=== PATIENT | male | born 1950 | race Caucasian/White ===

== ENCOUNTER 2020-09-28 10:03 | Outpatient (REF) | payer MEDICARE, SELFPAY | END 2020-09-28 10:04 | disposition home or self-care (01) | LOC: HO.LAB 10:03 | PROVIDERS: PCP Internal Medicine; Visit Provider Internal Medicine | DX: Z20.828 Contact with and (suspected) exposure to other viral communicable diseases (principal) | CPT/HCPCS: C9803; U0003 ==

== ENCOUNTER 2024-08-02 13:32 | Outpatient (AMB) | payer MEDICARE, SELFPAY ==
--- NOTE | 2024-08-02 13:45 | A.OFFVIS_ITS ---
Vital Signs 08/02/24 14:00 Height 5 ft 11 in Weight 161 lb 2 oz BMI 22.5 BP 140/80 H Blood Pressure Location Lt brachial Position Sitting Respiration 16 Pulse 98 Pulse Source Pulse Oximeter Pulse Oximetry (%) 100 Oxygen Delivery Method Room Air Intake Visit Reasons: Radiation fibrosis in neck Intake Note: Patient comes in for initial visit was referred by [facility] primary care. Reports pain 05/27. Allergies glipizide Allergy (Verified 08/02/24 13:49) Muscle Pain HPI Comments Details: Cj is very pleasant 73 years old gentleman who presents in my office with complain on weakness and intermittent severe pain in the lower cervical spine with radiation into bilateral shoulders. He relates his pain to the fact that he received radiation for widespread Hodgkin's lymphoma. 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 He reported that the condition started 15-20 years ago. He also received radiation for prostate cancer. That was more recent. He reports his pain today 05/27. He reports that his pain is aggravated by motion. His pain onset was gradual. Because of his pain he can not sleep normally. He has general problems with sleeping. He used to be on Ambien but now he weaned off of Ambien and he is able to sleep for 4-5 hours a night. He can do activities of daily living he can take care of himself but he can not function normally. He reports that every time he needs to perform some minimal efforts he feels severe pain in bilateral shoulders and in the neck and he is struggling with his activities. Movements aggravate his pain. In terms of tissue damage he reports his pain as dull, sore, hurting, aching, heavy sensation. He had multiple studies performed on his cervical lumbar and thoracic spine the dictation of the cervical spine is as below. The entire report from the radiology is uploaded in the section. He had multiple sessions of physical therapy massage therapy and herbal homeopathic treatment with [facility]. He received minimal help was from massage therapy. He continues to receive it from 08/05/24. His past medical history significant for heart disease anemia kidney disease diabetes arthritis sexual dysfunction hypertension and prostate problems. He is also suffering from sleep disorder. He had multiple surgeries in the past including biopsy for Hodgkin's disease in 1980 he had several colonoscopies and endoscopies and he had total shoulder replacement he also has a history of stent placement for the heart condition. [facility] Medical History (Updated 08/02/24 @ 16:15 by Vinny Mendez MD) Pulmonary hypertension Type 2 diabetes mellitus with diabetic nephropathy, with long-term current use of insulin SONIDO (obstructive sleep apnea) Stage 3 chronic kidney disease Hypothyroidism, unspecified Depressive disorder Family History (Updated 08/02/24 @ 14:05 by Prudence Guzmán) Father DM (diabetes mellitus) Mother DM (diabetes mellitus) HTN (hypertension) Renal failure Brother DM (diabetes mellitus) Social History (Updated 08/02/24 @ 13:56 by Prudence Guzmán) Alcohol intake: never Patient Tobacco Use Status: Former Tobacco user Review of Systems Const All systems reviewed & are unremarkable except as noted in HPI and below ENT Reports Normal hearing present Neuro Reports Normal hearing present, Denies Abnormal speech present, Denies confusion and Denies Sensory deficit (Neuro) Psych Denies confusion Physical Exam Vital Signs: Last Vital Signs Pulse 98 08/02/24 14:00 Resp 16 08/02/24 14:00 BP 140/80 H 08/02/24 14:00 Pulse Ox 100 08/02/24 14:00 Oxygen Delivery Method Room Air 08/02/24 14:00 BMI result Body Mass Index 22.5 Const General: no acute distress; No confusion Orientation/consciousness: patient oriented x3 and No confusion Eyes General: appearance normal, both eyes and all related structures Pupils: Equal, round and reactive pupils present EOM: EOMs intact bilaterally Neck Other: Very limited range of motion of the neck. No tenderness on palpation in paraspinal spinal region of the neck. He states that the pain is deep within. He can not bring the head in the upright vertical position however he normally keep it flex forward and facing down. Chest Chest palpation & inspection: normal inspection of the chest Resp Effort & Inspection: normal respiratory effort, able to speak in complete sentences, normal respiratory pattern, no audible wheezes and no cough Cardio Jugular venous distension: no JVD GI Inspection: Yes normal to inspection Neuro General: patient oriented x3, gait normal and No confusion Cranial nerves: Yes CN's II-XII intact bilaterally, Yes Equal, round and reactive pupils present, Yes Normal hearing present and Yes Ability to bilaterally elevate shoulders present Speech: No Abnormal speech present Gait exam (Neuro): Normal gait present Motor exam (neuro): 5/5 motor strength present throughout Sensory Exam: No Sensory deficit (Neuro) Extrem General: No pedal edema Psych Speech and movement: Normal speech and movement present Affect: normal affect Attitude: cooperative Thought process: Normal thought process present Thought content: Normal thought content present Insight: Good insight present (Psych) Judgement: Good judgement present (Psych) Results Reviewed Results Reviewed: CT cervical spine without contrast no acute fracture of the cervical spine. No suspicious osseous lesions are osseous erosions. Moderate degenerative disc disease of the cervical spine. Mild anterolisthesis of C4 on C5. Mild retrolisthesis of C6 on C7. 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 I need to do it without previous medial branch blocks because I believe in his conditions medial branch blocks will paralyzed multifidus muscles and compromise his condition even worse. However the stimulation with the sprint device may provide significant pain relief for this patient. I warned the patient that his bed neck posture will not be possible to get corrected on 1 session of the sprint PNS even if it lasts for 8 months. Patient is suffering from cardiac condition and he received a stent in RCA. We need to obtain the clearance from his search engineer whether or not we can stop his aspirin. He does not take any other blood thinners. After will obtain a clearance and patient will agreed to go for bilateral sprint PNS we will schedule him for the procedure right 1st and and left 2nd 2 weeks apart. Patient Instructions: I here by testify that I spent 45 minutes in conversation with this patient as well as planning his care evaluating his prior records and organizing this note. 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
[2024-08-02 14:00] VITALS: BP 140/80; PULSE 98; RESP 16; O2SAT 100; BMI 22.5
== END 2024-08-02 14:35 | disposition home or self-care (01) ==
PROVIDERS: PCP Physician Assistant Medical; Visit Provider Anesthesiology
DX: M79.2 Neuralgia and neuritis, unspecified (principal); G89.4 Chronic pain syndrome; L59.8 Other specified disorders of the skin and subcutaneous tissue related to radiation; Y84.2 Radiological procedure and radiotherapy as the cause of abnormal reaction of the patient, or of later complication, without mention of misadventure at the time of the procedure
CPT/HCPCS: 99204

== ENCOUNTER → 2024-08-02 13:32 | Outpatient (BNVA) | payer MEDICARE, SELFPAY | PROVIDERS: PCP Physician Assistant Medical; Visit Provider Anesthesiology | DX: M79.2 Neuralgia and neuritis, unspecified (principal); G89.4 Chronic pain syndrome; L59.8 Other specified disorders of the skin and subcutaneous tissue related to radiation; Y84.2 Radiological procedure and radiotherapy as the cause of abnormal reaction of the patient, or of later complication, without mention of misadventure at the time of the procedure | CPT/HCPCS: 99202 ==